=== PATIENT | female | born 1950 | race Hispanic/Latino ===

== ENCOUNTER 2020-03-22 21:35 | Emergency (ER) | payer MEDICARE, BC ==
[2020-03-22 22:17] LABS: Hemoglobin 15.7 g/dL (12.0-16.0); Mean Corpuscular HGB CONC 33.3 g/dL (32.0-36.0); Mean Corpuscular Hemoglobin 30.5 pg (27.0-31.0); Mean Corpuscular Volume 91.7 fL (78.0-98.0); RBC Distribution Width 12.7 % (11.5-14.5); Red Blood Cell (RBC) Count 5.15 mill/uL (4.20-5.40)
--- NOTE | 2020-03-22 22:20 | RAD ---
XR Chest 1 View Portable HISTORY: Shortness of breath, Covid19 positive COMPARISON: None FINDINGS: The heart size is borderline. The aorta is tortuous. The lungs are expanded with patchy opa cities in the lower lung spear bilaterally. No pneumothoraces or pleural effusions are seen. IMPRESSION: Findings suspicious for Covid19 pneumonia.
[2020-03-22 22:32] LABS: ALT (SGPT) 67 U/L (8-55); AST (SGOT) 102 U/L (5-34); Albumin 3.4 g/dL (3.4-4.8); Alkaline Phosphatase 138 U/L (40-110); Anion Gap 14 mmol/L (10-20); BUN (Urea Nitrogen) 6 mg/dL (9.8-20.1); Bilirubin, Total 0.5 mg/dL (0.2-1.2); Calc. Creatinine Clearance 0 mL/min (70-130); Calcium 7.9 mg/dL (7.8-10.44); Carbon Dioxide 25 mmol/L (23-31); Chloride 101 mmol/L (98-107); Globulin 3.5 g/dL (2.4-3.5); Glucose 120 mg/dL (80-115); Potassium 3.6 mmol/L (3.5-5.1); Protein, Total 6.9 g/dL (6.0-8.3); Sodium 136 mmol/L (136-145)
[2020-03-22 22:36] LABS: #Lymphocytes 1.6 thou/uL (1.20-3.40); #Monocytes 0.3 thou/uL (0.11-0.59); #Neutrophils 3.1 thou/uL (1.40-6.50); %Eosinophils 0.2 % (0.0-10.0); %Lymphocytes 31.8 % (21.0-51.0); %Monocytes 5.5 % (0.0-10.0); %Neutrophils 62.5 % (42.0-75.0); Mean Platelet Volume 9.2 fL (7.4-10.4); Platelet Count 96 thou/uL (130-400); Platelet Morphology Comment Appears Decreased
[2020-03-22 23:36] LABS: Bilirubin Negative (Negative); Blood, Urine Negative (Negative); Clarity Clear (Clear); Glucose, Urine (Dipstick) Normal (Negative); Ketone, Urine 40 mg/dL (Negative); Leukocyte 25 Leu/uL (Negative); Nitrite Negative (Negative); Protein, Urine (Dipstick) 70 mg/dL (Neg-Trace); RBC/HPF 0-3 HPF (0-3); Specific Gravity, Urine 1.021 (1.002-1.036); Urobilinogen 3 mg/dL (Less than 2); pH, Urine 6.5 (5.0-9.0)
[2020-03-22 23:38] LABS: Bacteria/HPF Rare-Few HPF (None Seen)
--- NOTE | 2020-04-11 20:36 | EKG ---
Test Reason : Blood Pressure : / mmHG Vent. Rate : 068 BPM Atrial Rate : 068 BPM P-R Int : 158 ms QRS Dur : 090 ms QT Int : 406 ms P-R-T Axes : 069 -19 -12 degrees QTc Int : 431 ms Normal sinus rhythm Moderate voltage criteria for LVH, may be normal variant Borderline ECG Confirmed by ROWAN STEVENS, SANDRA ([id number]), manager editorial LENNY ADAMES ([id number]) on 04/11/2020 8:36:28 PM Referred By: Confirmed By:SANDRA DONAHUE MD
== END 2020-03-23 00:50 | disposition home or self-care (01) ==
LOC: ERS 21:35
DX: U07.1 COVID-19 (principal); J12.82 Pneumonia due to coronavirus disease 2019; R79.89 Other specified abnormal findings of blood chemistry
CPT/HCPCS: 71045; 80053; 81003; 81015; 84484; 85025; 93005; 94760